=== PATIENT | female | born 1950 | race Caucasian/White ===

== ENCOUNTER → 2017-05-09 | Outpatient (CLI) | payer OTHER ==
--- NOTE | 2017-05-09 07:51 | REP ---
Clinical: Right upper quadrant abdominal pain. Technique: Brenner scale ultrasound using curved array transducer. Findings: The liver demonstrates mild diffuse fatty infiltration with areas of fatty sparing. The pancreas is normal in contour, size, and echogenicity without focal pancreatic lesion. The gallbladder is normal without gallstones, wall thickening or pericholecystic fluid. No biliary ductal dilatation is appreciated, and the common bile duct measures 4.4 mm diameter. The right kidney is normal in reniform shape without hydronephrosis and measures 10.8 x 4.9 x 4.1 cm. No ascites. Visualized portions of the abdominal aorta normal. Impression: Mild fatty infiltration to the liver. Otherwise, normal right upper quadrant and gallbladder abdominal ultrasound. Signed by Wilson Tellez MD 05/09/2017 07:42 A
--- NOTE | 2017-05-09 09:30 | REPMRS ---
Patient History The patient states she has not had a clinical breast exam in over a year. Family history of breast cancer in sister at age 58, ovarian cancer in sister at age 40, breast cancer in maternal aunt at age 54, and colorectal cancer in maternal aunt at age 50 or over. Digital Mammo Screening Bilat: May 09, 2017 - Exam #: [id number] Bilateral CC and MLO view(s) were taken. Technologist: Ashley Whiteside, Technologist Prior study comparison: July 23, 2014, bilateral digital mammo screening bilat performed at [facility]. September 16, 2012, bilateral digital mammo screening bilat performed at [facility]. FINDINGS: There are scattered fibroglandular densities. There has been no change in the appearance of the mammogram from the prior studies. There is a mild amount of residual fibroglandular tissue which is fairly symmetric. There is no interval development of dominant mass, architectural distortion, or clustered microcalcification suggestive of malignancy. ASSESSMENT: BI-RADS/ACR category 1 mammogram. Negative. Recommendation Routine screening mammogram in 1 year (for women over age 40). This mammogram was interpreted with the aid of an FDA-approved computer-aided dectection system. Electronically Signed By: Caleb Brenner MD 05/09/17 [id number]
== END ==
LOC: M RAD 06:56
PROVIDERS: ATTEND Internal Medicine
DX: R10.9 Unspecified abdominal pain (principal)

== ENCOUNTER 2017-07-26 07:46 | Outpatient (CLI) | payer OTHER ==
[~2017-07-26] VITALS: Ht 157.5 cm; Wt 86.2 kg
[~2017-07-26 07:46] MED LIST: ALBU17IN PO; CITA40TA4 PO; GUAI5ELAC PO; LORA10TA2 PO; MONT10TA2 PO; MULT1TAB10 PO; OMEP40CA2 PO; ROSU5TAB PO; VITA10006 PO; VITA1CAP2 PO
[2017-07-26] MEDS ORDERED: NS 1,000 ML IV SCH (08:30)
[2017-07-26] MEDS ORDERED: PROPOFOL 200 MG/20 ML VIAL As Ordered ONE (08:37)
[2017-07-26] MEDS ORDERED: LIDOCAINE 2% INJ 100 MG/5 ML SDV (FOR ANES.) As Ordered ONE (08:37)
--- NOTE | 2017-07-26 08:49 | ROOR ---
Patient Name: Destini Lainez Procedure Date: 07/26/2017 8:33 AM Date of : 1950 Age: 66 Room: [facility] Gender: Female Note Status: Finalized Procedure: Upper GI endoscopy Indications: Suspected esophageal reflux Providers: Bruno Mccoy Jr, MD Referring MD: KAYLEE MONTEZ JR, MD Requesting Provider: Medicines: Propofol per Anesthesia Complications: No immediate complications. Procedure: Pre-Anesthesia Assessment: - Prior to the procedure, a History and Physical was performed, and patient medications and allergies were reviewed. The patient is competent. The risks and benefits of the procedure and the sedation options and risks were discussed with the patient. All questions were answered and informed consent was obtained. Patient identification and proposed procedure were verified by the physician and the nurse in the pre-procedure area and in the procedure room. Mental Status Examination: alert and oriented. Airway Examination: normal oropharyngeal airway and neck mobility. Respiratory Examination: clear to auscultation. CV Examination: normal. ASA Grade Assessment: II - A patient with mild systemic disease. After reviewing the risks and benefits, the patient was deemed in satisfactory condition to undergo the procedure. The anesthesia plan was to use moderate sedation / analgesia (conscious sedation). Immediately prior to administration of medications, the patient was re-assessed for adequacy to receive sedatives. The heart rate, respiratory rate, oxygen saturations, blood pressure, adequacy of pulmonary ventilation, and response to care were monitored throughout the procedure. The physical status of the patient was re-assessed after the procedure. The Endoscope was introduced through the mouth, and advanced to the second part of duodenum. The upper GI endoscopy was accomplished without difficulty. The patient tolerated the procedure well. Findings: The upper third of the esophagus, middle third of the esophagus and lower third of the esophagus were normal. One mild benign-appearing, intrinsic stenosis was found at the gastroesophageal junction. And was not traversed. A medium-sized hiatal hernia was present. The cardia, gastric fundus and gastric body were normal. Localized mild inflammation characterized by congestion (edema), erythema and friability was found in the prepyloric region of the stomach. Biopsies were taken with a cold forceps for histology. The duodenal bulb, first portion of the duodenum and second portion of the duodenum were normal. Impression: - Normal upper third of esophagus, middle third of esophagus and lower third of esophagus. - Benign-appearing esophageal stenosis. - Medium-sized hiatal hernia. - Normal cardia, gastric fundus and gastric body. - Gastritis. Biopsied. - Normal duodenal bulb, first portion of the duodenum and second portion of the duodenum. Recommendation: - Discharge patient to home (ambulatory). - Return to my office in 3 weeks. Bruno Mccoy MD Bruno Mccoy Jr, MD 07/26/2017 8:48:45 AM This report has been signed electronically. Number of Addenda: 0 Note Initiated On: 07/26/2017 8:33 AM Estimated Blood Loss: Estimated blood loss: none.
[2017-07-26 09:15] VITALS: BP 105/54
== END 2017-07-26 09:22 | disposition home or self-care (01) ==
LOC: M OPP 07:46
PROVIDERS: ATTEND Surgery
DX: K21.9 Gastro-esophageal reflux disease without esophagitis (principal); R12 Heartburn; R13.10 Dysphagia, unspecified; R05 Cough; R49.0 Dysphonia; K22.0 Achalasia of cardia; K22.2 Esophageal obstruction; K44.9 Diaphragmatic hernia without obstruction or gangrene; K29.70 Gastritis, unspecified, without bleeding; E78.5 Hyperlipidemia, unspecified; M19.90 Unspecified osteoarthritis, unspecified site; Z87.19 Personal history of other diseases of the digestive system; L30.9 Dermatitis, unspecified; F32.9 Major depressive disorder, single episode, unspecified; J45.909 Unspecified asthma, uncomplicated; G47.8 Other sleep disorders; G47.30 Sleep apnea, unspecified; R06.83 Snoring; E66.9 Obesity, unspecified; Z88.1 Allergy status to other antibiotic agents; Z88.5 Allergy status to narcotic agent; Z88.2 Allergy status to sulfonamides; Z79.899 Other long term (current) drug therapy; Z80.8 Family history of malignant neoplasm of other organs or systems; Z80.3 Family history of malignant neoplasm of breast; Z80.41 Family history of malignant neoplasm of ovary

== ENCOUNTER → 2018-06-20 | Outpatient (REF) | LOC: M SMT 08:59 | DX: Z02.71 Encounter for disability determination (principal) ==

== ENCOUNTER 2018-09-19 07:00 | Day surgery (SDC) | payer MEDICARE ==
[2018-09-19] MEDS ORDERED: LIDOCAINE 2% INJ 100 MG/5 ML SDV (FOR ANES.) As Ordered (07:11)
[2018-09-19] MEDS ORDERED: PROPOFOL 200 MG/20 ML VIAL As Ordered (07:11)
[2018-09-19] MEDS: NS 1,000 ML IV (07:43)
== END 2018-09-19 08:57 | disposition home or self-care (01) ==
LOC: M OPP 07:00
DX: Z12.11 Encounter for screening for malignant neoplasm of colon (principal); K57.30 Diverticulosis of large intestine without perforation or abscess without bleeding; E78.5 Hyperlipidemia, unspecified; K21.9 Gastro-esophageal reflux disease without esophagitis; R12 Heartburn; Z87.19 Personal history of other diseases of the digestive system; M19.90 Unspecified osteoarthritis, unspecified site; L30.9 Dermatitis, unspecified; F41.9 Anxiety disorder, unspecified; J45.909 Unspecified asthma, uncomplicated; G47.8 Other sleep disorders; G47.30 Sleep apnea, unspecified; R06.83 Snoring; E66.9 Obesity, unspecified; Z88.1 Allergy status to other antibiotic agents; Z88.5 Allergy status to narcotic agent; Z88.2 Allergy status to sulfonamides; Z79.899 Other long term (current) drug therapy
CPT/HCPCS: G0121

== ENCOUNTER → 2018-12-10 | Outpatient (REF) | payer MEDICARE ==
[~2018-12-10] MED LIST changes: +GUAI1SOL7 PO; -GUAI5ELAC PO; +LORA-243 PO; -LORA10TA2 PO; -ROSU5TAB PO; +ROSU5TAB4 PO; +VENTAER INH
[2018-12-10 18:28] LABS: BLOOD UREA NITROGEN 16 MG/DL (7-18); CREATININE FOR GFR 0.95 MG/DL (0.55-1.30); GLOMERULAR FILTRATION RATE > 60.0 (>45)
== END ==
LOC: M LABDRAW1 17:42
PROVIDERS: ATTEND Orthopaedic Surgery
DX: M48.061 Spinal stenosis, lumbar region without neurogenic claudication (principal)

== ENCOUNTER → 2019-04-23 | Outpatient (REF) | payer MEDICARE ==
[~2019-04-23] MED LIST changes: +VITA-183 PO; -VITA1CAP2 PO
== END ==
LOC: M LAB REF 15:51
PROVIDERS: ATTEND Radiology Diagnostic Radiology
DX: N63.20 Unspecified lump in the left breast, unspecified quadrant (principal)

== ENCOUNTER → 2022-05-18 | Outpatient (CLI) | payer OTHER ==
[~2022-05-18] MED LIST changes: -CITA40TA4 PO; +CITA40TA7 PO; -MONT10TA2 PO; +MONT10TA97 PO; -OMEP40CA2 PO; +OMEP40CA4 PO; -ROSU5TAB4 PO; +ROSU5TAB5 PO
== END ==
LOC: M WHC 07:47
PROVIDERS: ATTEND Internal Medicine
DX: Z12.31 Encounter for screening mammogram for malignant neoplasm of breast (principal); Z80.3 Family history of malignant neoplasm of breast; Z80.41 Family history of malignant neoplasm of ovary; Z80.0 Family history of malignant neoplasm of digestive organs

== ENCOUNTER → 2023-05-22 | Outpatient (CLI) | payer OTHER | LOC: M WHC 08:11 | PROVIDERS: ATTEND Internal Medicine | DX: Z12.31 Encounter for screening mammogram for malignant neoplasm of breast (principal); Z80.3 Family history of malignant neoplasm of breast; M81.0 Age-related osteoporosis without current pathological fracture ==

== ENCOUNTER → 2024-11-12 | Outpatient (CLI) | payer OTHER ==
[~2024-11-12] MED LIST changes: +ROSU5TAB49 PO; -ROSU5TAB5 PO
== END ==
LOC: M WHC 08:23
PROVIDERS: ATTEND Internal Medicine
DX: Z12.31 Encounter for screening mammogram for malignant neoplasm of breast (principal)

== ENCOUNTER 2025-02-26 09:19 | Day surgery (SDC) | payer OTHER ==
[~2025-02-26] VITALS: Ht 154.9 cm; Wt 78.0 kg
[~2025-02-26 09:19] MED LIST changes: +CITA10TA7 PO; +LEVOTAB10 PO; +LIDOCAINE 2% 100MG/5ML SDV (FOR ANES.) As Ordered ONE; +OMEP-173 PO; +THERTAB52 PO; +propofoL 200 MG/20 ML VIAL As Ordered ONE
[2025-02-26 10:41] VITALS: TEMP 99
[2025-02-26 10:57] VITALS: BP 114/63; O2SAT 94
== END 2025-02-26 10:59 | disposition home or self-care (01) ==
LOC: M OPP 09:19
PROVIDERS: ATTEND Surgery
DX: K44.9 Diaphragmatic hernia without obstruction or gangrene (principal); K30 Functional dyspepsia; G47.30 Sleep apnea, unspecified; Z88.1 Allergy status to other antibiotic agents; Z88.2 Allergy status to sulfonamides; Z88.5 Allergy status to narcotic agent; Z91.048 Other nonmedicinal substance allergy status; Z79.899 Other long term (current) drug therapy

== ENCOUNTER → 2025-03-17 | Outpatient (CLI) | payer OTHER ==
[~2025-03-17] MED LIST changes: -LIDOCAINE 2% 100MG/5ML SDV (FOR ANES.) As Ordered ONE; +PROHANCE 279.3MG/ML 15ML VIAL ONE; -propofoL 200 MG/20 ML VIAL As Ordered ONE
== END ==
LOC: M PLAIMG 10:55
PROVIDERS: ATTEND Orthopaedic Surgery
DX: M25.512 Pain in left shoulder (principal)
CPT/HCPCS: 73223; A9576